=== PATIENT | female | born 1950 | race Caucasian/White ===

== ENCOUNTER 2017-06-19 19:46 | Observation (INO) | payer MEDICARE, OTHER ==
[2017-06-19] MEDS: Sodium Chloride 0.9% 10 ML Syringe FLUSH PRN (19:46)
[2017-06-19] MEDS ORDERED: EPINEPHrine 1 MG/ML SDV SUBCUT ONE (19:52)
[2017-06-19] MEDS ORDERED: Famotidine 20 MG/2 ML SDV IVPUSH ONE (19:53)
[2017-06-19] MEDS ORDERED: diphenhydrAMINE 50 MG/ML SDV IVPUSH ONE (19:53)
[2017-06-19] MEDS ORDERED: methylPREDNISolone Sodium Succinate 125 MG/2 ML SDV IVPUSH ONE (19:53)
[2017-06-19] MEDS ORDERED: EPINEPHrine 4 MG in Dextrose 5% in Water 250 ML IV SCH ×4 (21:00→22:30)
--- NOTE | 2017-06-19 21:05 | EDM.PDOC ---
ED HPI GENERAL MEDICAL PROBLEM - General Chief Complaint: Allergic Reaction Stated Complaint: GENERAL Time Seen by Provider: 06/19/17 19:50 Source of Information: Reports: Patient History Limitations: Reports: No Limitations - History of Present Illness INITIAL COMMENTS - FREE TEXT/NARRATIVE: c/o swollen tongue x 2h pt lives with brother, brother called to say pt was driving in with a swollen tongue no new exposures, no other symptoms is on lisinopril/HCTZ x last 4y had a swollen tongue after eating Arabic 3y ago and after waking up in the middle of the night while on an antibiotic 1y ago, both times the swelling went down after Benadryl x 2 pt again took Benadryl x 2 at home this evening, however swelling has not improved pt with some improvement (about 30%) after initial meds here (epi, solu-medrol, additional Benadryl, famotidine) will start an epi drip as she still has marked swelling as well as soft tissue swelling of the neck pt reports her brother had a swollen tongue 6w ago that got better after Benadryl 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, 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(s) - Related Data Allergies Allergy/AdvReac Type Severity Reaction Status Date / Time doxycycline Allergy Swollen Verified 06/19/17 20:10 Tongue Home Meds: Home Meds Lisinopril/Hydrochlorothiazide [Lisinopril-Hctz 20-12.5 mg Tab] 1 tab PO ASDIRECTED 06/19/17 [History] Omeprazole 40 mg PO ASDIRECTED 06/19/17 [History] Past Medical History HEENT History: Reports: Cataract Cardiovascular History: Reports: High Cholesterol, Hypertension Respiratory History: Reports: Other (See Below) Other Respiratory History: smoker x 30 years Gastrointestinal History: Reports: Cholelithiasis - Infectious Disease History Infectious Disease History: Reports: Chicken Pox, Measles, Mumps - Past Surgical History Cardiovascular Surgical History: Reports: Carotid Endarterectomy GI Surgical History: Reports: Cholecystectomy Social & Family History - Family History Family Medical History: Noncontributory - Tobacco Use Smoking Status *Q: Current Every Day Smoker Years of Tobacco use: 30 Packs/Tins Daily: 1 - Caffeine Use Caffeine Use: Reports: None - Recreational Drug Use Recreational Drug Use: No ED ROS ALLERGIC REACTION - Review of Systems Review Of Systems: See Below Constitutional: Reports: No Symptoms. Denies: Fever, Chills HEENT: Reports: Other (swollen tongue) Respiratory: Reports: No Symptoms. Denies: Shortness of Breath, Wheezing, Cough Cardiovascular: Reports: No Symptoms Endocrine: Reports: No Symptoms GI/Abdominal: Reports: No Symptoms : Reports: No Symptoms Musculoskeletal: Reports: No Symptoms Skin: Reports: No Symptoms Neurological: Reports: No Symptoms Psychiatric: Reports: No Symptoms Hematologic/Lymphatic: Reports: No Symptoms Immunologic: Reports: No Symptoms ED EXAM GENERAL NO PERIP PULSE - Physical Exam Exam: See Below Exam Limited By: No Limitations General Appearance: Alert, WD/WN, Other (alert, cooperative, difficulty speaking , not hoarse, no dyspnea, PO 84% initial and improved to 100% after meds) Eye Exam: Bilateral Eye: Normal Inspection Ears: Normal External Exam Nose: Normal Inspection, Normal Mucosa, No Blood Throat/Mouth: Other (tongue is swollen 2x nl size on L and 1.2x nl size on R, soft palate and ant/pos pillars and uvula wnl, does have moderate symmetric swell of submandibular tissues, no discrete LNs, no localized tender, no red) Neck: No: Lymphadenopathy (R), Lymphadenopathy (L) Respiratory/Chest: No Respiratory Distress, Lungs Clear, Normal Breath Sounds, No Accessory Muscle Use Cardiovascular: Regular Rate, Rhythm, No Edema, No Gallop, No Murmur, No Rub GI/Abdominal: Soft, Non-Tender, No Distention Back Exam: Normal Inspection, Full Range of Motion, NT Extremities: Normal Inspection, Normal Range of Motion, Non-Tender, No Pedal Edema Neurological: Alert, Oriented, CN II-XII Intact, Normal Cognition, No Motor/ Sensory Deficits Psychiatric: Normal Affect, Normal Mood Lymphatic: No Adenopathy Course - Vital Signs Last Recorded V/S: Last Vital Signs Temp 36.9 C 06/19/17 20:25 Pulse 87 06/19/17 20:25 Resp 20 06/19/17 20:25 BP 180/90 H 06/19/17 20:25 Pulse Ox 100 06/19/17 20:25 - Orders/Labs/Meds Orders: Active Orders 24 hr Category Date Time Status MAGNESIUM [CHEM] Stat Lab 06/19/17 21:52 Ordered EPINEPHrine 4 MG in D5W @ 0.1 MCG/KG/MIN(250ml) Med 06/19/17 21:00 Ordered EPINEPHrine [Adrenalin] 4 mg Dextrose 5% in Water 250 ml IV TITRATE Potassium Chloride [Klor-Con M20] Med 06/19/17 21:56 Once 40 meq PO ONETIME ONE Sodium Chloride 0.9% [Saline Flush] Med 06/19/17 20:40 Active 10 ml FLUSH ASDIRECTED PRN Saline Lock Insert [OM.PC] Routine Oth 06/19/17 20:40 Ordered Medication Orders Epinephrine HCl 4 mg/ Dextrose (/Water) 254 mls @ 32.83 mls/hr IV TITRATE DARÍO; Protocol Sodium Chloride (Saline Flush) 10 ml FLUSH ASDIRECTED PRN PRN Reason: Keep Vein Open Last Admin: 06/19/17 19:46 Dose: 10 ml Labs: Laboratory Tests 06/19/17 06/19/17 06/19/17 Range/Units 21:10 21:10 21:10 WBC 11.9 (4.5-12.0) X10-3/uL RBC 4.21 (3.23-5.20) x10(6)uL Hgb 13.7 (11.5-15.5) g/dL Hct 41.1 (30.0-51.3) % MCV 97.5 H (80-96) fL MCH 32.6 (27.7-33.6) pg MCHC 33.4 (32.2-35.4) g/dL RDW 14.1 (11.5-15.5) % Plt Count 367 (125-369) X10(3)uL MPV 7.6 (7.4-10.4) fL Neut % (Auto) 60.0 (46-82) % Lymph % (Auto) 32.3 (13-37) % [place] % (Auto) 5.5 (4-12) % Eos % (Auto) 1 (1.0-5.0) % Baso % (Auto) 1 (0-2) % Neut # (Auto) 7.1 (1.6-8.3) # Lymph # (Auto) 3.8 (0.6-5.0) # [place] # (Auto) 0.7 (0.0-1.3) # Eos # (Auto) 0.2 (0.0-0.8) # Baso # (Auto) 0.1 (0.0-0.2) # Sodium 136 (135-145) mmol/L Potassium 3.1 L (3.5-5.3) mmol/L Chloride 97 L (100-110) mmol/L Carbon Dioxide 25 (21-32) mmol/L BUN 16 (7-18) mg/dL Creatinine 1.1 H (0.55-1.02) mg/dL Est Cr Clr Drug Dosing 45.27 mL/min Estimated GFR (MDRD) 50 L (>60) BUN/Creatinine Ratio 14.5 (9-20) Glucose 124 H (80-116) mg/dL Calcium 8.9 (8.6-10.2) mg/dL Total Bilirubin 0.3 (0.1-1.3) mg/dL AST 19 (5-25) IU/L ALT 28 (12-36) U/L Alkaline Phosphatase 91 (56-112) IU/L C-Reactive Protein 0.2 L (0.5-0.9) mg/dL Total Protein 8.1 H (6.0-8.0) g/dL Albumin 4.0 (3.2-4.6) g/dL Globulin 4.1 g/dL Albumin/Globulin Ratio 1.0 Meds: Medications Generic Name Dose Route Start Last Admin Trade Name Freq PRN Reason Stop Dose Admin Epinephrine HCl 4 mg/ Dextrose 254 mls @ 32.83 mls/hr 06/19/17 21:00 /Water IV TITRATE DARÍO Protocol 0.1 MCG/KG/MIN Sodium Chloride 10 ml 06/19/17 20:40 06/19/17 19:46 Saline Flush FLUSH 10 ml ASDIRECTED PRN Administration Keep Vein Open Discontinued Medications Generic Name Dose Route Start Last Admin Trade Name Freq PRN Reason Stop Dose Admin Diphenhydramine HCl 50 mg 06/19/17 19:53 06/19/17 20:00 Benadryl IVPUSH 06/19/17 19:54 50 mg ONETIME ONE Administration Epinephrine HCl 0.3 mg 06/19/17 19:52 06/19/17 19:59 Adrenalin SUBCUT 06/19/17 19:53 0.3 mg ONETIME ONE Administration Epinephrine HCl Confirm 06/19/17 21:08 06/19/17 21:27 Adrenalin Administered 06/19/17 21:09 4 mg Dose Administration 4 mg .ROUTE .STK-MED ONE Famotidine 20 mg 06/19/17 19:53 06/19/17 20:12 Pepcid IVPUSH 06/19/17 19:54 20 mg ONETIME ONE Administration Loratadine 10 mg 06/19/17 21:08 06/19/17 21:18 Claritin PO 06/19/17 21:09 10 mg ONETIME ONE Administration Methylprednisolone Sodium Succinate 125 mg 06/19/17 19:53 06/19/17 19:58 Solu-Medrol IVPUSH 06/19/17 19:54 125 mg ONETIME ONE Administration Ranitidine HCl 300 mg 06/19/17 21:09 06/19/17 21:34 Zantac PO 06/19/17 21:10 300 mg NOW STA Administration - Re-Assessments/Exams Free Text/Narrative Re-Assessment/Exam: 06/19/17 22:00 pt remains somewhat refractory to meds, on epi drip, tolerating well, still 1.3x normal size tongue and dysarthric speech d/t swelling, submandibular swelling has dec'd by about 30% jaw feeling tight, will obtain soft tissue CT and give Ativan 0.5 mg IV will admit to observation with tele, pt agrees Departure - Departure Time of Disposition: 21:59 Disposition: Refer to Observation Condition: Good Clinical Impression: Angioedema, Hypokalemia - Discharge Information Referrals: Dimitri Fuentes MD [Primary Care Provider] - Forms: ED Department Discharge - My Orders Last 24 Hours: My Active Orders 06/19/17 20:40 Sodium Chloride 0.9% [Saline Flush] 10 ml FLUSH ASDIRECTED PRN Saline Lock Insert [OM.PC] Routine 06/19/17 21:00 EPINEPHrine 4 MG in D5W @ 0.1 MCG/KG/MIN(250ml) EPINEPHrine [Adrenalin] 4 mg Dextrose 5% in Water 250 ml IV TITRATE 06/19/17 21:52 MAGNESIUM [CHEM] Stat 06/19/17 21:56 Potassium Chloride [Klor-Con M20] 40 meq PO ONETIME ONE - Assessment/Plan Last 24 Hours: My Active Orders 06/19/17 20:40 Sodium Chloride 0.9% [Saline Flush] 10 ml FLUSH ASDIRECTED PRN Saline Lock Insert [OM.PC] Routine 06/19/17 21:00 EPINEPHrine 4 MG in D5W @ 0.1 MCG/KG/MIN(250ml) EPINEPHrine [Adrenalin] 4 mg Dextrose 5% in Water 250 ml IV TITRATE 06/19/17 21:52 MAGNESIUM [CHEM] Stat 06/19/17 21:56 Potassium Chloride [Klor-Con M20] 40 meq PO ONETIME ONE
[2017-06-19] MEDS ORDERED: EPINEPHrine 1 MG/ML SDV ONE (21:08)
[2017-06-19] MEDS ORDERED: Loratadine 10 MG Tab PO ONE (21:08)
[2017-06-19] MEDS ORDERED: Ranitidine 15 MG/ML Syrup ML (473 ML Bottle) PO STA (21:09)
[2017-06-19] MEDS ORDERED: Ranitidine 15 MG/ML Syrup ML (473 ML Bottle) PO ONE (21:34)
[2017-06-19] MEDS ORDERED: Potassium Chloride 20 MEQ Tab.ER PO ONE (21:56)
[2017-06-19] MEDS ORDERED: LORazepam 2 MG/ML SDV IVPUSH ONE (22:07)
[2017-06-19] MEDS ORDERED: Zolpidem 5 MG Tab PO PRN (22:14)
[2017-06-19] MEDS ORDERED: Acetaminophen 325 MG Tab PO PRN (22:14)
[2017-06-19] MEDS ORDERED: Ondansetron 4 MG/2 ML SDV IV PRN (22:14)
[2017-06-19] MEDS ORDERED: Nicotine 21 MG/24 Hr Patch TRDERM SCH (22:15)
[2017-06-19] MEDS ORDERED: Non-Formulary Medication 1 Each (Omeprazole [Omeprazole] 40 MG) PO SCH (22:30)
[2017-06-19] MEDS ORDERED: Nicotine 7 MG/24 Hr Patch TRDERM SCH (22:30)
[2017-06-19] MEDS ORDERED: Pneumococcal Polyvalent-23 Vaccine 0.5 ML SDV IM ONE (23:06)
[2017-06-20] MEDS: Sodium Chloride 0.9% 10 ML Syringe FLUSH PRN ×2 (01:53→05:24)
[2017-06-20] MEDS ORDERED: methylPREDNISolone Sodium Succinate 125 MG/2 ML SDV IVPUSH SCH (02:00)
[2017-06-20 08:53] VITALS: BP 129/68
[2017-06-20] MEDS ORDERED: Potassium Chloride 20 MEQ Tab.ER PO SCH (09:00)
[2017-06-20] MEDS ORDERED: amLODIPine 5 MG Tab PO SCH (09:00)
[2017-06-20] MEDS ORDERED: predniSONE 20 MG Tab PO ONE (09:00)
--- NOTE | 2017-06-20 09:51 | PCM.HP ---
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 She took her lisinopril hydrochlorothiazide about 3 hours before this incident. She's been taken Cipro for 4 years. She had a similar episode about 3 years ago when she ate Indonesian food and took some Benadryl and went away. She's had no fevers, chills, sore throat, nasal congestion, cough. She denies eating shellfish or peanut butter any other new foods. That day. She was admitted and treated with IV steroids, epinephrine, H2-blockers and H1 blockers. Oral/Mouth Pain Score (Numeric/FACES): 4 - Related Data Allergies/Adverse Reactions: Allergies Allergy/AdvReac Type Severity Reaction Status Date / Time doxycycline Allergy Swollen Verified 06/19/17 20:10 Tongue Home Medications: Home Meds Lisinopril/Hydrochlorothiazide [Lisinopril-Hctz 20-12.5 mg Tab] 1 tab PO ASDIRECTED 06/19/17 [History] Omeprazole 40 mg PO ASDIRECTED 06/19/17 [History] Past Medical History HEENT History: Reports: Cataract Cardiovascular History: Reports: High Cholesterol, Hypertension Respiratory History: Reports: Other (See Below) Other Respiratory History: smoker x 30 years Gastrointestinal History: Reports: Cholelithiasis 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: 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 (Cancer) History: Reports: Other (See Below) Other Oncologic History: HAD "SPOT" REMOVED FROM r FACE - Infectious Disease History Infectious Disease History: Reports: Chicken Pox, Measles, Mumps - Past Surgical History Cardiovascular Surgical History: Reports: Carotid Endarterectomy GI Surgical History: Reports: Cholecystectomy Social & Family History - Family History Family Medical History: Noncontributory - Tobacco Use Smoking Status *Q: Current Every Day Smoker Years of Tobacco use: 30 Packs/Tins Daily: 1 Used Tobacco, but Quit: No Second Hand Smoke Exposure: Yes - Caffeine Use Caffeine Use: Reports: Coffee Other Caffeine Use: 2 cups a day - Alcohol Use Days Per Week of Alcohol Use: 3 Number of Drinks Per Day: 2 Total Drinks Per Week: 6 Date of Last Drink: 06/20/17 - Recreational Drug Use Recreational Drug Use: No H&P Review of Systems - Review of Systems: Review Of Systems: See Below General: Reports: No Symptoms HEENT: Reports: Other (See history of present illness) Pulmonary: Reports: No Symptoms Cardiovascular: Reports: No Symptoms Gastrointestinal: Reports: No Symptoms Genitourinary: Reports: No Symptoms Musculoskeletal: Reports: No Symptoms Skin: Reports: No Symptoms Psychiatric: Reports: No Symptoms Neurological: Reports: No Symptoms Hematologic/Lymphatic: Reports: No Symptoms Immunologic: Reports: No Symptoms Exam - Exam Exam: See Below - Vital Signs Vital Signs: Last Vital Signs Temp 97.5 F 06/20/17 03:26 Pulse 87 06/20/17 06:00 Resp 17 06/20/17 06:00 BP 129/68 06/20/17 08:53 Pulse Ox 98 06/20/17 06:00 Weight: 193 lb 8 oz - Exam General: Alert, Oriented, Cooperative HEENT: PERRLA, Mucosa Moist & [place], Other (With no erythema negative see her uvula. Tongue is not swollen. She has some submental swelling with no nodes palpable or pain or erythema. Her face has no swelling. Ears TMs are clear.) Neck: Supple Lungs: Clear to Auscultation, Normal Respiratory Effort. No: Wheezing Cardiovascular: Regular Rate, Regular Rhythm. No: Tachycardia, Systolic Murmur , Diastolic Murmur GI/Abdominal Exam: Normal Bowel Sounds, Soft, Non-Tender, No Organomegaly, No Distention, No Abnormal Bruit, No Mass Back Exam: Normal Inspection, Full Range of Motion Extremities: Normal Inspection, Normal Range of Motion, Non-Tender, No Pedal Edema Skin: Warm, Dry, Intact Neurological: Normal Speech, Normal Tone Neuro Extensive - Mental Status: Alert, Oriented x3, Normal Mood/Affect, Normal Cognition Neuro Extensive - Motor, Sensory, Reflexes: Normal Gait Psychiatric: Alert, Normal Affect, Normal Mood - Patient Data Lab Results Last 24 hrs: Laboratory Results - last 24 hr 06/19/17 06/19/17 06/19/17 Range/Units 21:10 21:10 21:10 WBC 11.9 (4.5-12.0) X10-3/uL RBC 4.21 (3.23-5.20) x10(6)uL Hgb 13.7 (11.5-15.5) g/dL Hct 41.1 (30.0-51.3) % MCV 97.5 H (80-96) fL MCH 32.6 (27.7-33.6) pg MCHC 33.4 (32.2-35.4) g/dL RDW 14.1 (11.5-15.5) % Plt Count 367 (125-369) X10(3)uL MPV 7.6 (7.4-10.4) fL Neut % (Auto) 60.0 (46-82) % Lymph % (Auto) 32.3 (13-37) % [place] % (Auto) 5.5 (4-12) % Eos % (Auto) 1 (1.0-5.0) % Baso % (Auto) 1 (0-2) % Neut # (Auto) 7.1 (1.6-8.3) # Lymph # (Auto) 3.8 (0.6-5.0) # [place]ess # (Auto) 0.7 (0.0-1.3) # Eos # (Auto) 0.2 (0.0-0.8) # Baso # (Auto) 0.1 (0.0-0.2) # Sodium 136 (135-145) mmol/L Potassium 3.1 L (3.5-5.3) mmol/L Chloride 97 L (100-110) mmol/L Carbon Dioxide 25 (21-32) mmol/L BUN 16 (7-18) mg/dL Creatinine 1.1 H (0.55-1.02) mg/dL Est Cr Clr Drug Dosing 45.27 mL/min Estimated GFR (MDRD) 50 L (>60) BUN/Creatinine Ratio 14.5 (9-20) Glucose 124 H (80-116) mg/dL Calcium 8.9 (8.6-10.2) mg/dL Magnesium (1.8-2.5) mg/dL Total Bilirubin 0.3 (0.1-1.3) mg/dL AST 19 (5-25) IU/L ALT 28 (12-36) U/L Alkaline Phosphatase 91 (56-112) IU/L C-Reactive Protein 0.2 L (0.5-0.9) mg/dL Total Protein 8.1 H (6.0-8.0) g/dL Albumin 4.0 (3.2-4.6) g/dL Globulin 4.1 g/dL Albumin/Globulin Ratio 1.0 / Range/Units 21:10 WBC (4.5-12.0) X10-3/uL RBC (3.23-5.20) x10(6)uL Hgb (11.5-15.5) g/dL Hct (30.0-51.3) % MCV (80-96) fL MCH (27.7-33.6) pg MCHC (32.2-35.4) g/dL RDW (11.5-15.5) % Plt Count (125-369) X10(3)uL MPV (7.4-10.4) fL Neut % (Auto) (46-82) % Lymph % (Auto) (13-37) % [place]ess % (Auto) (4-12) % Eos % (Auto) (1.0-5.0) % Baso % (Auto) (0-2) % Neut # (Auto) (1.6-8.3) # Lymph # (Auto) (0.6-5.0) # Ness # (Auto) (0.0-1.3) # Eos # (Auto) (0.0-0.8) # Baso # (Auto) (0.0-0.2) # Sodium (135-145) mmol/L Potassium (3.5-5.3) mmol/L Chloride (100-110) mmol/L Carbon Dioxide (21-32) mmol/L BUN (7-18) mg/dL Creatinine (0.55-1.02) mg/dL Est Cr Clr Drug Dosing mL/min Estimated GFR (MDRD) (>60) BUN/Creatinine Ratio (9-20) Glucose (80-116) mg/dL Calcium (8.6-10.2) mg/dL Magnesium 1.6 L (1.8-2.5) mg/dL Total Bilirubin (0.1-1.3) mg/dL AST (5-25) IU/L ALT (12-36) U/L Alkaline Phosphatase (56-112) IU/L C-Reactive Protein (0.5-0.9) mg/dL Total Protein (6.0-8.0) g/dL Albumin (3.2-4.6) g/dL Globulin g/dL Albumin/Globulin Ratio Result Diagrams: 06/19/17 21:10 06/19/17 21:10 - Problem List (1) Angioedema SNOMED Code(s): 00352431 ICD Code: T78.3XXA - ANGIONEUROTIC EDEMA, INITIAL ENCOUNTER Status: Acute Current Visit: Yes (2) Hypokalemia SNOMED Code(s): 35304994 ICD Code: E87.6 - HYPOKALEMIA Status: Acute Current Visit: Yes Problem List Initiated/Reviewed/Updated: Yes Orders Last 24hrs: Active Orders 24 hr Category Date Time Status Admission Status [Patient Status] [ADT] Routine ADT 06/19/17 22:11 Active Oxygen Therapy [RC] PRN Care 06/19/17 22:14 Active Up With Assistance [RC] ASDIRECTED Care 06/19/17 22:14 Active Vital Signs [RC] QSHIFT Care 06/19/17 22:14 Active 2 Gram Sodium Diet [DIET] Diet 06/20/17 Breakfast Active Neck Soft Tissue [CR] Routine Exams 06/19/17 23:01 Taken Soft Tissue Neck w Cont [CT] Stat Exams 06/20/17 22:05 Stop Req Acetaminophen [Tylenol] Med 06/19/17 22:14 Active 650 mg PO Q4H PRN Nicotine [Habitrol] Med 06/20/17 21:00 Active 7 mg TRDERM BEDTIME Sodium Chloride 0.9% [Saline Flush] Med 06/19/17 20:40 Active 10 ml FLUSH ASDIRECTED PRN amLODIPine [Norvasc] Med 06/20/17 09:00 Active 5 mg PO DAILY Saline Lock Insert [OM.PC] Routine Oth 06/19/17 20:40 Ordered Resuscitation Status Routine Resus Stat 06/19/17 22:14 Ordered Medication Orders Acetaminophen (Tylenol) 650 mg PO Q4H PRN PRN Reason: Pain (Mild 1-3)/fever Last Admin: 06/20/17 06:56 Dose: 650 mg Amlodipine Besylate (Norvasc) 5 mg PO DAILY DARÍO Last Admin: 06/20/17 08:53 Dose: 5 mg Nicotine (Habitrol) 7 mg TRDERM BEDTIME DARÍO Sodium Chloride (Saline Flush) 10 ml FLUSH ASDIRECTED PRN PRN Reason: Keep Vein Open Last Admin: 06/20/17 05:24 Dose: 10 ml Admin: 06/20/17 01:53 Dose: 10 ml Admin: 06/19/17 19:46 Dose: 10 ml Assessment/Plan Comment:: 1. Admit the patient for observation. 2 Stop Solu-Medrol and start prednisone 40 mg a day. 3. Regular diet. 4. No labs. 5. CAT scan was ordered I stopped. 6. Stop lisinopril which is most likely. Start Norvasc grams a day. 7. Observe and if she does well discharge to home. .
--- NOTE | 2017-06-20 10:10 | PCM.SN ---
- Free Text/Narrative Note: Patient continued to improve in the morning so we'll discharged home on prednisone 40 mg a day and Norvasc 5 mg a day. Stop lisinopril hydrochlorothiazide.
--- NOTE | 2017-06-20 10:17 | PCM.DCSUM1 ---
Discharge Summary - Hospital Course Free Text/Narrative:: Hospital course-patient was given Solu-Medrol IV with a drip of epinephrine. Her swelling went down quite considerably through the night and by the morning she just says some submental swelling. She is able to talk, swallow. She had no signs of infection. We stopped IV epinephrine and the Solu-Medrol gave her prednisone. We stopped her lisinopril start Norvasc 5 mg a day. Her potassium was low and will give her some potassium [id number]. Brief History: This is a 66-year-old female patient started having what she described as pain in her teeth and later became swollen tongue and jaw and throat. She took her lisinopril hydrochlorothiazide about 3 hours before this incident. She's been taken Cipro for 4 years. She had a similar episode about 3 years ago when she ate [place] food and took some Benadryl and went away. She's had no fevers, chills, sore throat, nasal congestion, cough. She denies eating shellfish or peanut butter any other new foods. That day. She was admitted and treated with IV steroids, epinephrine, H2-blockers and H1 blockers. - Discharge Data Discharge Date: 06/20/17 Discharge Disposition: Home, Self-Care 01 Condition: Good - Discharge Diagnosis/Problem(s) (1) Angioedema SNOMED Code(s): 61862913 ICD Code: T78.3XXA - ANGIONEUROTIC EDEMA, INITIAL ENCOUNTER Status: Acute Current Visit: Yes (2) Hypokalemia SNOMED Code(s): 94825941 ICD Code: E87.6 - HYPOKALEMIA Status: Acute Current Visit: Yes - Patient Instructions Diet: Regular Diet as Tolerated Activity: As Tolerated Driving: May Drive Today Notify Provider of: Increased Pain, Swelling and Redness Other/Special Instructions: 1. Recheck with Dr. Dmiitri Szymanski in 1 week. 2. Potassium before the appointment. - Discharge Plan Prescriptions/Med Rec: amLODIPine Besylate [Amlodipine Besylate] 5 mg PO DAILY #30 tablet Potassium Chloride 20 meq PO DAILY #20 tablet.er predniSONE 40 mg PO WITHBREAKFAST #10 tab Home Medications: Home Meds Potassium Chloride 20 meq PO DAILY #20 tablet.er 06/20/17 [Rx] amLODIPine Besylate [Amlodipine Besylate] 5 mg PO DAILY #30 tablet 06/20/17 [Rx] predniSONE 40 mg PO WITHBREAKFAST #10 tab 06/20/17 [Rx] Forms: ED Department Discharge Referrals: Dimitri Fuentes MD [Primary Care Provider] - - Discharge Summary/Plan Comment DC Time >30 min.: No - Patient Data Vitals - Most Recent: Last Vital Signs Temp 97.5 F 06/20/17 03:26 Pulse 87 06/20/17 06:00 Resp 17 06/20/17 06:00 BP 129/68 06/20/17 08:53 Pulse Ox 98 06/20/17 06:00 Weight - Most Recent: 193 lb 8 oz I&O - Last 24 hours: Intake & Output 06/19/17 06/20/17 06/20/17 22:59 06:59 14:59 Intake Total 485 Output Total 650 600 Balance -165 -600 Lab Results - Last 24 hrs: Laboratory Results - last 24 hr 06/19/17 06/19/17 06/19/17 Range/Units 21:10 21:10 21:10 WBC 11.9 (4.5-12.0) X10-3/uL RBC 4.21 (3.23-5.20) x10(6)uL Hgb 13.7 (11.5-15.5) g/dL Hct 41.1 (30.0-51.3) % MCV 97.5 H (80-96) fL MCH 32.6 (27.7-33.6) pg MCHC 33.4 (32.2-35.4) g/dL RDW 14.1 (11.5-15.5) % Plt Count 367 (125-369) X10(3)uL MPV 7.6 (7.4-10.4) fL Neut % (Auto) 60.0 (46-82) % Lymph % (Auto) 32.3 (13-37) % [place] % (Auto) 5.5 (4-12) % Eos % (Auto) 1 (1.0-5.0) % Baso % (Auto) 1 (0-2) % Neut # (Auto) 7.1 (1.6-8.3) # Lymph # (Auto) 3.8 (0.6-5.0) # [place] # (Auto) 0.7 (0.0-1.3) # Eos # (Auto) 0.2 (0.0-0.8) # Baso # (Auto) 0.1 (0.0-0.2) # Sodium 136 (135-145) mmol/L Potassium 3.1 L (3.5-5.3) mmol/L Chloride 97 L (100-110) mmol/L Carbon Dioxide 25 (21-32) mmol/L BUN 16 (7-18) mg/dL Creatinine 1.1 H (0.55-1.02) mg/dL Est Cr Clr Drug Dosing 45.27 mL/min Estimated GFR (MDRD) 50 L (>60) BUN/Creatinine Ratio 14.5 (9-20) Glucose 124 H (80-116) mg/dL Calcium 8.9 (8.6-10.2) mg/dL Magnesium (1.8-2.5) mg/dL Total Bilirubin 0.3 (0.1-1.3) mg/dL AST 19 (5-25) IU/L ALT 28 (12-36) U/L Alkaline Phosphatase 91 (56-112) IU/L C-Reactive Protein 0.2 L (0.5-0.9) mg/dL Total Protein 8.1 H (6.0-8.0) g/dL Albumin 4.0 (3.2-4.6) g/dL Globulin 4.1 g/dL Albumin/Globulin Ratio 1.0 //18 Range/Units 21:10 WBC (4.5-12.0) X10-3/uL RBC (3.23-5.20) x10(6)uL Hgb (11.5-15.5) g/dL Hct (30.0-51.3) % MCV (80-96) fL MCH (27.7-33.6) pg MCHC (32.2-35.4) g/dL RDW (11.5-15.5) % Plt Count (125-369) X10(3)uL MPV (7.4-10.4) fL Neut % (Auto) (46-82) % Lymph % (Auto) (13-37) % [place] % (Auto) (4-12) % Eos % (Auto) (1.0-5.0) % Baso % (Auto) (0-2) % Neut # (Auto) (1.6-8.3) # Lymph # (Auto) (0.6-5.0) # [place] # (Auto) (0.0-1.3) # Eos # (Auto) (0.0-0.8) # Baso # (Auto) (0.0-0.2) # Sodium (135-145) mmol/L Potassium (3.5-5.3) mmol/L Chloride (100-110) mmol/L Carbon Dioxide (21-32) mmol/L BUN (7-18) mg/dL Creatinine (0.55-1.02) mg/dL Est Cr Clr Drug Dosing mL/min Estimated GFR (MDRD) (>60) BUN/Creatinine Ratio (9-20) Glucose (80-116) mg/dL Calcium (8.6-10.2) mg/dL Magnesium 1.6 L (1.8-2.5) mg/dL Total Bilirubin (0.1-1.3) mg/dL AST (5-25) IU/L ALT (12-36) U/L Alkaline Phosphatase (56-112) IU/L C-Reactive Protein (0.5-0.9) mg/dL Total Protein (6.0-8.0) g/dL Albumin (3.2-4.6) g/dL Globulin g/dL Albumin/Globulin Ratio Med Orders - Current: Current Medications Acetaminophen (Tylenol) 650 mg PO Q4H PRN PRN Reason: Pain (Mild 1-3)/fever Last Admin: 06/20/17 06:56 Dose: 650 mg Amlodipine Besylate (Norvasc) 5 mg PO DAILY DARÍO Last Admin: 06/20/17 08:53 Dose: 5 mg Nicotine (Habitrol) 7 mg TRDERM BEDTIME [facility] Sodium Chloride (Saline Flush) 10 ml FLUSH ASDIRECTED PRN PRN Reason: Keep Vein Open Last Admin: 06/20/17 05:24 Dose: 10 ml Discontinued Medications Diphenhydramine HCl (Benadryl) 50 mg IVPUSH ONETIME ONE Stop: 06/19/17 19:54 Last Admin: 06/19/17 20:00 Dose: 50 mg Epinephrine HCl (Adrenalin) 0.3 mg SUBCUT ONETIME ONE Stop: 06/19/17 19:53 Last Admin: 06/19/17 19:59 Dose: 0.3 mg Epinephrine HCl (Adrenalin) Confirm Administered Dose 4 mg .ROUTE .STK-MED ONE Stop: 06/19/17 21:09 Last Admin: 06/19/17 21:27 Dose: 4 mg Famotidine (Pepcid) 20 mg IVPUSH ONETIME ONE Stop: 06/19/17 19:54 Last Admin: 06/19/17 20:12 Dose: 20 mg Epinephrine HCl 4 mg/ Dextrose (/Water) 254 mls @ 32.83 mls/hr IV TITRATE DARÍO; Protocol Epinephrine HCl 4 mg/ Dextrose (/Water) 254 mls @ 32.83 mls/hr IV TITRATE DARÍO; Protocol Loratadine (Claritin) 10 mg PO ONETIME ONE Stop: 06/19/17 21:09 Last Admin: 06/19/17 21:18 Dose: 10 mg Lorazepam (Ativan) 0.5 mg IVPUSH ONETIME ONE Stop: 06/19/17 22:08 Last Admin: 06/19/17 22:21 Dose: 0.5 mg Methylprednisolone Sodium Succinate (Solu-Medrol) 125 mg IVPUSH ONETIME ONE Stop: 06/19/17 19:54 Last Admin: 06/19/17 19:58 Dose: 125 mg Methylprednisolone Sodium Succinate (Solu-Medrol) 125 mg IVPUSH Q6H [facility] Last Admin: 06/20/17 01:52 Dose: 125 mg Nicotine (Habitrol) 21 mg TRDERM DAILY [facility] Last Admin: 06/20/17 07:22 Dose: Not Given Nicotine (Habitrol) 7 mg TRDERM DAILY [facility] Last Admin: 06/19/17 23:41 Dose: 7 mg Non-Formulary Medication (Omeprazole [Omeprazole]) 40 mg PO ASDIRECTED [facility] Ondansetron HCl (Zofran) 4 mg IV Q4H PRN PRN Reason: Nausea/Vomiting Pneumococcal Polyvalent Vaccine (Pneumovax 23) 0.5 ml IM .ONCE ONE Stop: 06/19/17 23:07 Potassium Chloride (Klor-Con M20) 40 meq PO ONETIME ONE Stop: 06/19/17 21:57 Potassium Chloride (Klor-Con M20) 40 meq PO BID [facility] Prednisone (Prednisone) 40 mg PO ONETIME ONE Stop: 06/20/17 09:01 Last Admin: 06/20/17 09:24 Dose: 40 mg Ranitidine HCl (Zantac) 300 mg PO NOW STA Stop: 06/19/17 21:10 Last Admin: 06/19/17 21:34 Dose: 300 mg Zolpidem Tartrate (Ambien) 5 mg PO BEDTIME PRN PRN Reason: Sleep
[2017-06-20] MEDS ORDERED: Nicotine 7 MG/24 Hr Patch TRDERM SCH (21:00)
--- NOTE | 2017-06-22 13:47 | CR ---
INDICATION: Angioedema partially refractory to medication. NECK SOFT TISSUE: Frontal and lateral views of the neck were obtained and revealed the airways to be patent, the epiglottis appears to be normal. Prevertebral space appeared to be normal. Degenerative changes and disk disease are noted at C5-6, C6-7. Mild degenerative changes are also suggested at the atlantoodontoid joint. No radiopaque foreign body was identified. IMPRESSION: Patent airways. Normal epiglottis. MTDD
== END 2017-06-20 10:55 | disposition home or self-care (01) ==
LOC: FB.ED 19:46 → FB.MS 22:11
PROVIDERS: ADMIT Emergency Medicine; ATTEND Family Medicine
DX: T78.3XXA Angioneurotic edema, initial encounter (principal); E87.6 Hypokalemia; I10 Essential (primary) hypertension; E78.00 Pure hypercholesterolemia, unspecified; Z88.1 Allergy status to other antibiotic agents; Z79.899 Other long term (current) drug therapy; F17.210 Nicotine dependence, cigarettes, uncomplicated
CPT/HCPCS: 36415; 70360; 80053; 83735; 85025; 86140; 96365; 96375; 99285; A9270; J0171; J1200; J2060; J2930; J7050; 99283; S0028